=== PATIENT | female | born 1995 ===

== ENCOUNTER 2020-02-01 17:57 | Emergency (ER) | payer SELFPAY ==
[2020-02-01] MEDS ORDERED: LORazepam 1 MG TAB PO ONE (19:47)
--- NOTE | 2020-02-01 20:32 | XRay Report ---
CHEST 2 VIEWS INDICATION / CLINICAL INFORMATION: Chest pain. COMPARISON: None available. FINDINGS: SUPPORT DEVICES: None. HEART / MEDIASTINUM: No significant abnormality. LUNGS / PLEURA: No significant pulmonary or pleural abnormality. No pneumothorax. ADDITIONAL FINDINGS: No significant additional findings. IMPRESSION: 1. No acute findings. Signer Name: Sherri Cortez MD Signed: 02/01/2020 8:28 PM Workstation Name: [id number]
--- NOTE | 2020-02-01 20:40 | Emergency Department Report ---
ED General Adult HPI - General Chief complaint: Anxiety Stated complaint: HEART RACING Time Seen by Provider: 02/01/20 19:39 Source: patient Mode of arrival: Ambulatory Limitations: No Limitations - History of Present Illness Initial comments: This is a 24-year-old female who presents the ED stating that she is at what seems to be panic attack for the past year patient states symptoms started in early March last year patient states she was given prescription which she stopped taking because it made her symptoms worse. Patient states she has not been to a psychologist since then. Patient states symptoms are consistent with heart racing, feelings of Grief, chest pain and other symptoms. Patient states that symptoms are getting worse and occurring every day. Patient states she has no past medical history of any conditions, she has no allergies to any medications. - Related Data Previous Rx's Medication Instructions Recorded Last Taken Type LORazepam [Ativan] 0.5 mg PO QHS #10 tab 02/01/20 Unknown Rx Allergies Allergy/AdvReac Type Severity Reaction Status Date / Time No Known Allergies Allergy Unverified 02/01/20 18:02 ED Review of Systems ROS: Stated complaint: HEART RACING Other details as noted in HPI Comment: All other systems reviewed and negative ED Past Medical Hx - Past Medical History Previous Medical History?: Yes Hx Psychiatric Treatment: Yes (anxiety) Additional medical history: Heart racing - Surgical History Past Surgical History?: No - Social History Smoking Status: Never Smoker Substance Use Type: None - Medications Home Medications: Home Medications Medication Instructions Recorded Confirmed Last Taken Type LORazepam [Ativan] 0.5 mg PO QHS #10 tab 02/01/20 Unknown Rx ED Physical Exam - General Limitations: No Limitations General appearance: alert, in no apparent distress - Head Head exam: Present: atraumatic, normocephalic - Eye Eye exam: Present: normal appearance, PERRL Pupils: Present: normal accommodation - ENT ENT exam: Present: mucous membranes moist - Neck Neck exam: Present: normal inspection, full ROM. Absent: tenderness, lymphadenopathy, thyromegaly - Respiratory Respiratory exam: Present: normal lung sounds bilaterally. Absent: respiratory distress, wheezes, rales, chest wall tenderness - Cardiovascular Cardiovascular Exam: Present: regular rate, normal rhythm, tachycardia (mildly tachy at 100). Absent: systolic murmur, diastolic murmur, rubs, gallop - GI/Abdominal GI/Abdominal exam: Present: soft, normal bowel sounds. Absent: distended, tenderness - Extremities Exam Extremities exam: Present: normal inspection - Back Exam Back exam: Present: normal inspection, full ROM - Neurological Exam Neurological exam: Present: alert, oriented X3, normal gait - Psychiatric Psychiatric exam: Present: normal affect, normal mood. Absent: homicidal ideation, suicidal ideation - Skin Skin exam: Present: warm, dry, intact, normal color. Absent: rash ED Course Vital Signs 02/01/20 02/01/20 18:01 21:18 Temperature 97.8 F 98.7 F Pulse Rate 100 H 80 Respiratory 24 18 Rate Blood Pressure 150/95 Blood Pressure 144/87 [Left] O2 Sat by Pulse 100 100 Oximetry ED Medical Decision Making - Radiology Data Radiology results: report reviewed, image reviewed CHEST 2 VIEWS INDICATION / CLINICAL INFORMATION: Chest pain. COMPARISON: None available. FINDINGS: SUPPORT DEVICES: None. HEART / MEDIASTINUM: No significant abnormality. LUNGS / PLEURA: No significant pulmonary or pleural abnormality. No pneumothorax. ADDITIONAL FINDINGS: No significant additional findings. IMPRESSION: 1. No acute findings. Signer Name: Sherri Cortez MD Signed: 02/01/2020 8:28 PM Workstation Name: [id number] Transcribed By: DT Dictated By: Stu Cortez MD Electronically Authenticated By: Stu Cortez MD Signed Date/Time: 02/01/202027 - Medical Decision Making This 24-year-old female who presents the ED with anxiety attack x1 year Chest x-ray shows no acute findings. Discussed with patient need to follow-up with therapist/psychiatrist. Discussed with patient on low-dose lorazepam for couple of days until follow-up since she is having symptoms daily Vital signs are normal patient is not in any acute distress. Patient understands instructions and will follow-up. Critical care attestation.: If time is entered above; I have spent that time in minutes in the direct care of this critically ill patient, excluding procedure time. ED Disposition Clinical Impression: Panic attacks, Anxiety Disposition: DC-01 TO HOME OR SELFCARE Is pt being admited?: No Does the pt Need Aspirin: No Condition: Stable Instructions: Anxiety (ED) Additional Instructions: Make sure to follow up with the primary care physician as discussed. If you have any worsening symptoms or develop new symptoms please return to ED immediately. Prescriptions: LORazepam [Ativan] 0.5 mg PO QHS #10 tab Referrals: PRIMARY CARE, [Primary Care Provider] - 3-5 Days [facility] [Outside] - 3-5 Days [facility] [Outside] - 3-5 Days [facility] [Outside] - 3-5 Days Forms: Accompanied Note, Work/School Release Form(ED) Time of Disposition: 21:01
== END 2020-02-01 21:20 | disposition home or self-care (01) ==
LOC: ED 17:57
DX: F41.9 Anxiety disorder, unspecified (principal); F41.0 Panic disorder [episodic paroxysmal anxiety]
CPT/HCPCS: 71046